=== PATIENT | male | born 1950 | race Caucasian/White ===

== ENCOUNTER → 2018-08-07 | Outpatient (CLI) | payer MEDICARE, OTHER, SELFPAY ==
[2018-08-07 14:51] LABS: Hematocrit 49.6 % (40-54); Hemoglobin 16.9 g/dl (13.0-16.5); Mean Corp Hgb Conc 34.1 g/gl (32-36); Mean Corpuscular Hgb 31.5 pg (27.0-32.0); Mean Corpuscular Volume 92.5 fL (80-94); Mean Platelet Vol. 10.9 fl (6.2-12.0); Platelet Count 213 K/mm3 (150-450); RBC Distribution Width CV 14.6 % (11.6-14.6); RBC Distribution Width SD 49.4 fl (35.1-43.9); Red Blood Count 5.36 M/mm3 (4.6-6.2); White Blood Count 9.9 K/mm3 (4.4-11.0)
[2018-08-07 14:56] LABS: Scan Indicated on CBC? Y/N NO
[2018-08-07 15:32] LABS: Anion Gap 5 (5-15); BUN 18 mg/dL (7-18); BUN/Creat Ratio 13.5 RATIO (10-20); Calcium,Total 9.2 mg/dL (8.5-10.1); Chloride 107 mmol/L (98-107); Cholesterol 200 mg/dL (200); Creatinine, Serum 1.33 mg/dL (0.70-1.30); EST Glomerular Filtration Rate 57 mL/min (>60); Est Glom Filt Rate - Afr Amer 69 mL/min (>60); Glucose 83 mg/dL (74-106); High Density Lipoprotein 48 mg/dL; PSA,Total - Annual Screen 0.69 ng/mL (0.00-4.00); Potassium 4.3 mmol/L (3.5-5.1); Sodium Level 140 mmol/L (136-145); Triglycerides 78 mg/dL; Very Low Density Lipoprotein 16 mg/dL (5-40)
== END | disposition home or self-care (01) ==
DX: I25.110 Atherosclerotic heart disease of native coronary artery with unstable angina pectoris (principal); Z12.5 Encounter for screening for malignant neoplasm of prostate
CPT/HCPCS: 36415; 80048; 80061; 84153; 85027; G0103

== ENCOUNTER → 2018-08-25 08:45 | Outpatient (CLI) | payer MEDICARE, OTHER, SELFPAY ==
--- NOTE | 2018-08-25 08:49 | ECHOD_ITS ---
Reason For Study: CARDIOMYOPATHY Procedure This was a 2D Doppler, Color Flow transthoracic echocardiogram. The study was technically difficult. Exam performed in department. Left Ventricle Normal LV size. Left ventricular systolic function is normal. The estimated ejection fraction is 60 %. No evidence for diastolic dysfunction. No regional wall motion abnormalities noted. Right Ventricle Normal RV size. Normal systolic function. Atria The left atrium is mildly enlarged. Normal right atrium. No doppler evidence for ASD. Mitral Valve There is no mitral annular calcification. Anterior leaflet diffuse mitral valve thickening. Mild (1+) mitral valve insufficiency. Tricuspid Valve Normal tricuspid valve. Trivial tricuspid valve insufficiency. Right ventricular systolic pressure estimated to be 27 mmHg. Aortic Valve Trisinus/trileaflet aortic valve. Normal aortic valve. Pulmonic Valve The pulmonic valve is not well visualized. Great Vessels Normal sized aortic root. Pericardium/Pleural No pericardial effusion. MMode/2D Measurements & Calculations LVIDd: 5.0 cm IVSd: 1.1 cm Ao root diam: 3.2 cm LVIDs: 3.5 cm LVPWd: 1.2 cm RVDd: 3.5 cm FS: 29.5 % LAV(MOD-bp): 67.1 ml LA A4 area: 19.3 cm2 LA dimension(2D): 4.5 cm LAV(MOD-bp) Indexed: 32.2 ml/m2 LAV(MOD-sp2): 69.8 ml LAV(MOD-sp4): 58.3 ml RA A4 area: 18.4 cm2 Time Measurements MV dec time: 0.21 sec Doppler Measurements & Calculations MV E max alfred: 65.0 cm/sec Lat Peak E' Alfred: 13.1 cm/sec Med Peak E' Alfred: 9.2 cm/sec MV A max alfred: 44.4 cm/sec E/E' lat: 5.0 E/E' med: 7.1 MV E/A: 1.5 Ao V2 max: 109.9 cm/sec LV V1 max: 94.9 cm/sec PA V2 max: 96.1 cm/sec Ao max P.5 mmHg LV V1 max P.6 mmHg TR max alfred: 244.9 cm/sec TR max P.0 mmHg Interpretation Summary The study was technically difficult. Left ventricular systolic function is normal. The estimated ejection fraction is 60 %. The left atrium is mildly enlarged. Anterior leaflet diffuse mitral valve thickening. Mild (1+) mitral valve insufficiency. Trivial tricuspid valve insufficiency. Right ventricular systolic pressure estimated to be 27 mmHg. No evidence for diastolic dysfunction. Ordering Physician: JEET MASSEY Referring Physician: JEET MASSEY Performed By: Tigist Tan, ELIUD, RVT
--- NOTE | 2018-08-25 08:49 | ART_ITS ---
Reason For Study: claudication Left Segmental Pressures Left brachial= 145mmHg. Left posterior tibial artery = 124mmHg. Left dorsalis pedis artery = 126mmHg. The left dorsalis pedis waveforms are biphasic. The left posterior tibial artery waveforms are biphasic. Right Segmental Pressures Right brachial= 155mmHg. Right posterior tibial artery = 147mmHg. Right dorsalis pedis artery = 182mmHg. The right dorsalis pedis waveforms are triphasic. The right posterior tibial artery waveforms are triphasic. Indices The right ankle brachial index by the dorsalis pedis is 1.17. The right ankle brachial index by the posterior tibial artery is .95. The left ankle brachial index by the dorsalis pedis is .81. The left ankle brachial index by the posterior tibial artery is .80. Interpretation Summary Triphasic Doppler waveforms are noted at ankle level on the right. Biphasic Doppler waveforms are noted at ankle level on the left. Pulse-volume recording waveform amplitudes are diminished at ankle and digital level on the left. The resting right ankle-brachial index is normal. The resting left ankle-brachial index is mildly to moderately diminished. Arterial flow in the right lower extremity appears normal. 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 Ordering Physician: JEET MASSEY Performed By: ANTON TERRY T
== END ==
DX: I70.213 Atherosclerosis of native arteries of extremities with intermittent claudication, bilateral legs (principal); I42.0 Dilated cardiomyopathy
CPT/HCPCS: 93306; 93922

== ENCOUNTER → 2018-10-01 | Outpatient (CLI) | payer MEDICARE, OTHER, SELFPAY ==
--- NOTE | 2018-10-01 13:43 | ART_ITS ---
Reason For Study: PVD Procedure A bilateral lower extremity continuous wave Doppler with analog waveform analysis,segmental pressures,and ankle brachial indexes with exercise. Left Segmental Pressures Left brachial= 117mmHg. Left thigh = 141mmHg. Left calf = 103mmHg. Left posterior tibial artery = 75mmHg. Left dorsalis pedis artery = 83mmHg. Left digit = 47 mmHg. The left dorsalis pedis waveforms are biphasic. The left posterior tibial artery waveforms are biphasic. Right Segmental Pressures Right brachial= 114mmHg. Right posterior tibial artery = 112mmHg. Right dorsalis pedis artery = 145mmHg. Right digit = 83 mmHg. The right dorsalis pedis waveforms are triphasic. The right posterior tibial artery waveforms are triphasic. Indices The right ankle brachial index by the dorsalis pedis is 1.24. The right ankle brachial index by the posterior tibial artery is 0.96. The right digital-brachial index is 0.71. The right post exercise ankle brachial index is 0.98. The left ankle brachial index by the dorsalis pedis is 0.71. The left ankle brachial index by the posterior tibial artery is 0.64. The left digital-brachial index is 0.40. The left post exercise ankle brachial index is 0.27. Interpretation Summary Triphasic Doppler waveforms are noted at ankle level on the right. Biphasic Doppler waveforms are noted at ankle level on the left. Pulse-volume recording waveform amplitudes are diminished at calf, ankle, and digital levels on the left. The resting right ankle-brachial index is normal. The resting left ankle-brachial index is moderately diminished. The right digital-brachial index is low-normal. The left digital-brachial index is moderately diminished. Following 5 minutes of ambulation on a treadmill at 2 mph and a 5%grade, ankle pressures augment on the right (normal response), and diminish on the left. There is no evidence of significant arterial occlusive disease in the right lower extremity. 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 Ordering Physician: Jimmy Orosco Performed By: Charlotte Marquis, ELIUD, RVT
== END | disposition home or self-care (01) ==
LOC: CVS 13:41
PROVIDERS: Referring Provider Surgery Vascular Surgery; Visit Provider Surgery Vascular Surgery
DX: I73.9 Peripheral vascular disease, unspecified (principal)
CPT/HCPCS: 93924

== ENCOUNTER 2020-08-24 20:17 | Emergency (ER) | payer MEDICARE, OTHER, SELFPAY ==
[2020-08-24 20:18] VITALS: BP 159/74; PULSE 96; RESP 20; TEMP 38.4; O2SAT 94; BMI 27.2
[2020-08-24 20:48] LABS: Absolute Lymphocyte Count 1.08 X10^3/uL (0.83-4.51); Absolute Neutrophil Count 7.9 X10^3/uL (2.0-7.7); Basophil# 0.02 X10^3/uL; Basophil% 0.2 % (0-1); Eosinophil# 0.01 X10^3/uL; Eosinophils% 0.1 % (0-5); Hematocrit 45.3 % (40-54); Hemoglobin 14.9 g/dL (13.0-16.5); Lymphocyte # 1.08 X10^3/ul (0.83-4.51); Lymphocyte % 10.8 % (19-41); Mean Corp Hgb Conc 32.9 g/dL (32-36); Mean Corpuscular Hgb 30.2 pg (27.0-32.0); Mean Corpuscular Volume 91.7 fL (80-94); Mean Platelet Vol. 10.7 fl (6.2-12.0); Monocyte# 1.05 X10^3/uL; Monocyte% 10.5 % (0-10); NRBC Flagged by Analyzer 0 % (0-5); Neutrophil # 7.85 X10^3/uL (2.7-7.7); Neutrophil % 78.1 % (47-70); Platelet Count 147 K/mm3 (150-450); RBC Distribution Width CV 14.3 % (11.6-14.6); RBC Distribution Width SD 48.2 fl (35.1-43.9); Red Blood Count 4.94 M/mm3 (4.6-6.2)
--- NOTE | 2020-08-24 20:54 | EX.ED.VIS.UR ---
HPI HPI - URI History of Present Illness Chief Complaint: Shortness of Breath Informant: patient Onset/Context/Timing Onset: Weeks Context: Sudden Onset Timing: Continuous Quality: Aches, decreased appetite, congestion, cough, shortness of breath and shaki Location: Respiratory and generalized Current Severity: Mild Maximum Severity: Severe Worsened by: - (Nothing) Relieved by: - (Nothing) Associated Symptoms Associated Symptoms: Nasal Congestion, Headache, Sinus Pressure, Nausea, Vomiting, Diarrhea, Shortness of Breath, Chest Pain, Nonproductive cough, Hemoptysis and Productive Cough Narrative Narrative: Patient is a 62-year-old male who is a smoker 1 pack/day for many years who presents with viral type symptoms. Onset approximately 1 week ago. He was exposed to granddaughter who tested positive for Covid. He denies headache, photophobia or neck pain. He denies rash. He denies loss of taste or smell. He denies abdominal pain. Does report nausea with decreased appetite. Denies diarrhea. Nuys black or maroon-colored stool. He denies dysuria, frequency, urgency or hematuria. Prior similar symptoms: No Recent Illness/Hospitalization: No ROS ROS ED Constitutional Constitutional ED: Reports chills, fever(s), subjective and sweats; Denies weight loss Eyes Eyes: Denies blurry vision, change in vision or diplopia ENT ENT ED: Reports rhinorrhea; Denies ear pain or sore throat Cardiovascular Cardiovascular: Denies chest pain, orthopnea, palpitations or paroxysmal nocturnal dyspnea Respiratory/Chest Respiratory/Chest: Reports cough and dyspnea; Denies dyspnea on exertion, orthopnea, paroxysmal nocturnal dyspnea or sputum Gastrointestinal Gastrointestinal: Reports nausea; Denies abdominal pain, constipation, diarrhea, melena or vomiting Genitourinary Genitourinary ED: Denies dysuria, hematuria or urinary frequency Musculoskeletal Musculoskeletal: Reports arthralgias and myalgias Integumentary Denies rash Neurologic Neurologic: Reports weakness; Denies headache(s) or paresthesias Endocrine Endocrinology: Denies polydipsia, polyphagia or polyuria Hematologic/Lymphatic Hematologic/Lymphatic: Denies easy bleeding or easy bruising [facility] Medical History (Updated 08/24/20 @ 22:[address] Dylan Manriquez MD) Hypertension Home Medications levofloxacin 500 mg PO DAILY #6 tab 08/24/20 [Rx Last Taken Unknown] Allergy/AdvReac Type Severity Reaction Status Date / Time No Known Allergies Allergy Verified 08/24/20 20:20 Surgical History (Updated 08/24/20 @ 21:27 by Mg Fierro) History of coronary artery stent placement Social History (Updated 08/24/20 @ 20:[address] Dylan Manriquez MD) household members: none history of recent travel: No current gender identity: male Smoking Status: Current every day smoker alcohol intake: current alcohol intake frequency: holidays/special occasions only substance use type: does not use EXAM Physical Exam Const Vital Signs: 08/24/20 20:18 08/24/20 21:20 08/24/20 21:26 Temperature 101.2 F H 101.1 F H Temperature Source Temporal Oral Pulse Rate 96 89 89 Respiratory Rate 20 H 25 H 20 H Respiratory Effort Respiratory Depth Respiratory Pattern Blood Pressure 159/74 H 131/72 H 134/74 H Blood Pressure Mean 102 91 94 Pulse Ox 94 94 94 Oxygen Delivery Method Room Air Room Air Room Air 08/24/20 21:28 Temperature Temperature Source Pulse Rate Respiratory Rate Respiratory Effort Short of Breath Respiratory Depth Normal Respiratory Pattern Normal Blood Pressure Blood Pressure Mean Pulse Ox Oxygen Delivery Method Positive well nourished and well developed General Appearance ED: well developed and other Patient does not appear well. ; Negative for cyanotic or pallor HEENT Reports TM's clear and dry mucous membranes normocephalic and atraumatic External Ear: external ears normal, mastoids normal and no preauricular adenopathy External Auditory Canal: EAC's normal Tympanic Membrane ED: Yes TM's clear Mouth ED: Yes dry mucous membranes Mouth: dry mucous membranes Eyes PERRL and EOMs intact bilaterally General Eye ED: Negative for pale conjunctiva or scleral icterus Neck no lymphadenopathy, supple, no meningeal signs and no JVD Resp normal respiratory effort and clear to auscultation bilaterally Cardio S1 normal heart sound, S2 normal heart sound and no murmurs Rate: regular rate Rhythm: regular rhythm Bruits: Negative for carotid bruit or abdominal aortic bruit GI non-tender, non-distended and no masses Auscultation: normoactive bowel sounds Palpation: soft Back/Spine no CVA tenderness and normal ROM Extremity normal to inspection and full ROM General Extremety ED: Negative for cyanosis or tenderness General Extremity: Negative for cyanosis Neuro oriented x3, CN's II-XII intact bilaterally and no sensory deficits noted Sensorium / Orientation: alert, oriented to person, oriented to place and oriented to time Motor Exam: strength 5/5 throughout Psych mental status grossly normal Skin General Skin Exam: Negative for jaundice or pallor Lesions: no lesions Rashes: no rashes MDM MDM MDM Narrative Medical decision making narrative: Patient presents with fever and respiratory symptoms. This may represent pneumonia or Covid. Since there was exposure to Covid will place in Covid precautions and appropriate tests have been ordered. Since Covid test is negative and there is concern for pneumonia we will treat with Levaquin for commune acquired pneumonia. Since patient is not tachypneic, not tachycardic and not hypoxic with a normal white count lactate he is a candidate for outpatient therapy. Lab Data Attestation: I reviewed the patient's lab results. Lab results narrative: I returned unremarkable. Labs: Laboratory Results - last 24 hr 08/24/20 08/24/20 08/24/20 20:35 20:35 20:35 WBC 10.0 RBC 4.94 Hgb 14.9 Hct 45.3 MCV 91.7 MCH 30.2 MCHC 32.9 RDW Std Deviation 48.2 H RDW Coeff of Becky 14.3 Plt Count 147 L MPV 10.7 Immature Gran % (Auto) 0.300 Neut % (Auto) 78.1 H Lymph % (Auto) 10.8 L [place] % (Auto) 10.5 H Eos % (Auto) 0.1 Baso % (Auto) 0.2 Absolute Neuts (auto) 7.9 H Absolute Lymphs (auto) 1.08 Nucleated RBC % 0 Sodium 133 L Potassium 3.7 Chloride 101 Carbon Dioxide 28.0 Anion Gap 4 L BUN 16 Creatinine 1.13 Estim Creat Clear Calc 64.60 Est GFR (MDRD) Af Amer 83 Est GFR (MDRD) Non-Af 69 BUN/Creatinine Ratio 14.2 Glucose 111 H Lactic Acid 1.4 Calcium 8.6 Radiography Diagnostic Testing: Radiology Impression Chest X-Ray 08/24/20 21:05 IMPRESSION: Bilateral focal areas of airspace disease possibly representing pneumonia. at 2139 Reported and signed by: Aiden Chong MD Electronically Signed: Aiden Chong MD at 21:38 EDT Tel , Service support , Single view chest x-ray reveals normal cardiac silhouette and size. Mediastinum unremarkable. There is slight increased interstitial markings in the right and left lower lung. This may be due to poor inspiratory volume or early Covid pneumonia. Awaiting Covid test. The x-ray was interpreted by me at 2133. Treatment and Re-Evaluation Comments:: If Covid test is positive we will treat symptomatically. If Covid test is negative we will treat for community-acquired pneumonia. Lactate is normal at 1.4. Discharge Plan Triage Chief Complaint: Shortness of Breath ED Provider: Dylan Manriquez Dx/Rx/DC Orders Clinical Impression: Community acquired pneumonia Prescriptions: New levofloxacin [levofloxacin] 500 MG tablet 500 mg PO DAILY Qty: 6 RF: 0 Primary Care Provider: [facility] Doctor,Out of Referrals: [facility] Doctor,Out of [Primary Care Provider] - 3-5 Days if not improving Disposition Disposition: Home, self care
[2020-08-24 21:05] LABS: Anion Gap 4 (5-15); BUN 16 mg/dL (7-18); BUN/Creat Ratio 14.2 RATIO (10-20); Calcium,Total 8.6 mg/dL (8.5-10.1); Chloride 101 mmol/L (98-107); Creatinine, Serum 1.13 mg/dL (0.70-1.30); EST Glomerular Filtration Rate 69 mL/min (>60); Est Glom Filt Rate - Afr Amer 83 mL/min (>60); Glucose 111 mg/dL (74-106); Potassium 3.7 mmol/L (3.5-5.1); Sodium Level 133 mmol/L (136-145)
--- NOTE | 2020-08-24 21:05 | RAD_ITS ---
HISTORY: cough EXAM: XR Chest 1 View: COMPARISON: Left shoulder x-rays from September 30, 2011 FINDINGS: # of images incl. paperwork: 1 Airspace disease within the left lower lobe and the right upper lobe. Calcific plaque within the aortic arch. Heart is not enlarged. No acute osseous pathology perceived. Pulmonary vascularity is distinct. No effusions. RAD/Chest 1 View (Portable) IMPRESSION: Bilateral focal areas of airspace disease possibly representing pneumonia. at 2139 Reported and signed by: Aiden Chong MD Electronically Signed: Aiden Chong MD at 21:38 EDT Tel , Service support ,
[2020-08-24 21:20] VITALS: BP 131/72; PULSE 89; RESP 25; TEMP 38.4; O2SAT 94
[2020-08-24 21:26] VITALS: BP 134/74; PULSE 89; RESP 20; O2SAT 94
[2020-08-24 21:43] LABS: Lactic Acid 1.4 mmol/L (0.4-1.9)
[2020-08-24 22:37] VITALS: BP 109/53; PULSE 84; RESP 30; TEMP 1011; TEMP 543.8; O2SAT 94
[2020-08-24] MEDS: levoFLOXacin 750 MG Tablet PO (22:39)
== END 2020-08-24 22:45 | disposition home or self-care (01) ==
LOC: ED 22:28
PROVIDERS: Emergency Provider Emergency Medicine
DX: J18.9 Pneumonia, unspecified organism (principal); F17.210 Nicotine dependence, cigarettes, uncomplicated; I10 Essential (primary) hypertension
CPT/HCPCS: 71045; 80048; 83605; 85025; 87040; 87426; 99284; A4216

== ENCOUNTER → 2020-09-25 09:35 | Outpatient (CLI) | payer MEDICARE, OTHER, SELFPAY ==
[2020-09-25 10:12] LABS: Hematocrit 45.5 % (40-54); Hemoglobin 14.6 g/dL (13.0-16.5); Mean Corp Hgb Conc 32.1 g/dL (32-36); Mean Corpuscular Hgb 30.2 pg (27.0-32.0); Mean Platelet Vol. 10.5 fl (6.2-12.0); Platelet Count 204 K/mm3 (150-450); RBC Distribution Width CV 14.8 % (11.6-14.6); RBC Distribution Width SD 51.8 fl (35.1-43.9); Red Blood Count 4.84 M/mm3 (4.6-6.2); White Blood Count 9.8 K/mm3 (4.4-11.0)
[2020-09-25 10:39] LABS: AST(SGOT) 21 U/L (15-37); Alanine Aminotransfer ALT/SGPT 28 U/L (16-61); Albumin, Serum 3.2 g/dL (3.2-5.0); Alkaline Phosphatase 137 U/L (45-117); Anion Gap 7 (5-15); BUN 16 mg/dL (7-18); BUN/Creat Ratio 14.3 RATIO (10-20); Bilirubin, Direct 0.13 mg/dL (0.00-0.30); Calcium,Total 8.8 mg/dL (8.5-10.1); Chloride 110 mmol/L (98-107); Cholesterol 110 mg/dL (200); Creatinine, Serum 1.12 mg/dL (0.70-1.30); EST Glomerular Filtration Rate 69 mL/min (>60); Est Glom Filt Rate - Afr Amer 84 mL/min (>60); Globulin 3.5 g/dL (2.2-4.2); Glucose 91 mg/dL (74-106); High Density Lipoprotein 47 mg/dL; PSA,Total - Annual Screen 0.61 ng/mL (0.00-4.00); Potassium 3.8 mmol/L (3.5-5.1); Protein, Total 6.7 g/dL (6.4-8.2); Sodium Level 141 mmol/L (136-145); T4 Free Direct 0.95 ng/dL (0.76-1.46); Triglycerides 44 mg/dL; Very Low Density Lipoprotein 9 mg/dL (5-40)
== END ==
DX: E78.5 Hyperlipidemia, unspecified (principal); E03.9 Hypothyroidism, unspecified; Z12.5 Encounter for screening for malignant neoplasm of prostate
CPT/HCPCS: 36415; 80048; 80061; 80076; 84153; 84439; 85027; G0103

== ENCOUNTER → 2021-10-29 | Outpatient (CLI) | payer MEDICARE, OTHER, SELFPAY ==
[2021-10-29 09:41] LABS: Hematocrit 47.5 % (40-54); Hemoglobin 15.5 g/dL (13.0-16.5); Mean Corp Hgb Conc 32.6 g/dL (32-36); Mean Corpuscular Hgb 30.9 pg (27.0-32.0); Mean Corpuscular Volume 94.8 fL (80-94); Mean Platelet Vol. 11.2 fl (6.2-12.0); Platelet Count 196 K/mm3 (150-450); RBC Distribution Width CV 14.6 % (11.6-14.6); RBC Distribution Width SD 50.7 fl (35.1-43.9); Red Blood Count 5.01 M/mm3 (4.6-6.2); White Blood Count 10.2 K/mm3 (4.4-11.0)
[2021-10-29 10:11] LABS: AST(SGOT) 19 U/L (15-37); Alanine Aminotransfer ALT/SGPT 27 U/L (16-61); Albumin, Serum 3.6 g/dL (3.2-5.0); Alkaline Phosphatase 118 U/L (45-117); Anion Gap 7 (5-15); BUN 12 mg/dL (7-18); BUN/Creat Ratio 11.1 RATIO (10-20); Bilirubin, Direct 0.13 mg/dL (0.00-0.30); Calcium,Total 9.1 mg/dL (8.5-10.1); Chloride 104 mmol/L (98-107); Cholesterol 99 mg/dL (200); Creatinine, Serum 1.08 mg/dL (0.70-1.30); EST Glomerular Filtration Rate 72 mL/min (>60); Est Glom Filt Rate - Afr Amer 87 mL/min (>60); Globulin 3.3 g/dL (2.2-4.2); Glucose 100 mg/dL (74-106); High Density Lipoprotein 46 mg/dL; Potassium 3.7 mmol/L (3.5-5.1); Protein, Total 6.9 g/dL (6.4-8.2); Sodium Level 139 mmol/L (136-145); Triglycerides 55 mg/dL; Very Low Density Lipoprotein 11 mg/dL (5-40)
== END | disposition home or self-care (01) ==
PROVIDERS: Referring Provider Internal Medicine Cardiovascular Disease; Visit Provider Internal Medicine Cardiovascular Disease
DX: E78.5 Hyperlipidemia, unspecified (principal); M12.80 Other specific arthropathies, not elsewhere classified, unspecified site
CPT/HCPCS: 36415; 80048; 80061; 80076; 85027

== ENCOUNTER → 2022-09-23 | Outpatient (CLI) | payer MEDICARE, OTHER, SELFPAY ==
--- NOTE | 2022-09-23 11:24 | RAD_ITS ---
EXAM: XR CHEST, 2 VIEWS CLINICAL INDICATION: Psoriasis vulgaris TECHNIQUE: Frontal and lateral views of the chest. COMPARISON: 08/24/2020. FINDINGS: LUNGS AND PLEURAL SPACES: Unremarkable. No consolidation or edema. No pneumothorax. No effusion. HEART: Unremarkable. Cardiac silhouette not enlarged. MEDIASTINUM: Central airways and mediastinal contour are unremarkable. BONES/JOINTS: Unremarkable. SOFT TISSUES: Unremarkable. RAD/Chest PA and Lateral IMPRESSION: No acute cardiopulmonary abnormality. Electronically Signed: Andry Dao MD at 1:01 EDT ,
== END | disposition home or self-care (01) ==
PROVIDERS: Referring Provider Dermatology Pediatric Dermatology; Visit Provider Dermatology Pediatric Dermatology
DX: L40.0 Psoriasis vulgaris (principal)
CPT/HCPCS: 71046

== ENCOUNTER → 2023-01-21 | Outpatient (CLI) | payer MEDICARE, OTHER, SELFPAY ==
[2023-01-21 13:25] LABS: AST(SGOT) 21 U/L (15-37); Alanine Aminotransfer ALT/SGPT 33 U/L (16-61); Albumin, Serum 3.5 g/dL (3.2-5.0); Alkaline Phosphatase 145 U/L (45-117); Anion Gap 5 (5-15); BUN 12 mg/dL (7-18); BUN/Creat Ratio 10.6 RATIO (10-20); Bilirubin, Direct 0.16 mg/dL (0.00-0.30); Calcium,Total 9.3 mg/dL (8.5-10.1); Chloride 107 mmol/L (98-107); Cholesterol 109 mg/dL (200); Creatinine, Serum 1.13 mg/dL (0.70-1.30); EST Glomerular Filtration Rate 68 mL/min (>60); Est Glom Filt Rate - Afr Amer 82 mL/min (>60); Globulin 3.6 g/dL (2.2-4.2); Glucose 97 mg/dL (74-106); High Density Lipoprotein 48 mg/dL; Potassium 4.1 mmol/L (3.5-5.1); Protein, Total 7.1 g/dL (6.4-8.2); Sodium Level 140 mmol/L (136-145); Triglycerides 64 mg/dL; Very Low Density Lipoprotein 13 mg/dL (5-40)
== END | disposition home or self-care (01) ==
LOC: MTLAB 10:54
PROVIDERS: PCP Internal Medicine Cardiovascular Disease; Referring Provider Internal Medicine Cardiovascular Disease; Visit Provider Internal Medicine Cardiovascular Disease
DX: I25.10 Atherosclerotic heart disease of native coronary artery without angina pectoris (principal); E78.5 Hyperlipidemia, unspecified
CPT/HCPCS: 36415; 80048; 80061; 80076

== ENCOUNTER → 2023-01-28 | Outpatient (CLI) | payer MEDICARE, OTHER, SELFPAY ==
[2023-01-30 12:09] LABS: QNTFERON TB Mitogen Value > 10.00 IU/mL (.); QNTFERON TB Nil Value 0.04 IU/mL (.); QNTFERON TB1+ Ag Value 0.04 IU/mL (.); QNTFERON TB2+ Ag Value 0.05 IU/mL (.); QNTIFERON TB Positive Criteria Negative (Negative)
== END | disposition home or self-care (01) ==
LOC: MTLAB 08:56
PROVIDERS: PCP Internal Medicine Cardiovascular Disease
DX: Z79.899 Other long term (current) drug therapy (principal)
CPT/HCPCS: 36415; 86480

== ENCOUNTER → 2023-02-20 | Outpatient (CLI) | payer MEDICARE, OTHER, SELFPAY ==
[2023-02-21 14:09] LABS: Anti-Cardiolipin Ab, IgA, Qn < 9 APL U/mL (0-11); Anti-Cardiolipin Ab, IgG, Qn < 9 GPL U/mL (0-14); Anti-Cardiolipin Ab, IgM, Qn 10 MPL U/mL (0-12); Thyroid Peroxidase AB 13 IU/mL (0-34)
[2023-02-22 13:07] LABS: Anti-Nuclear Antibody Test Negative (.); Anti-dsDNA Ab <1 IU/mL (0-9)
== END | disposition home or self-care (01) ==
LOC: MTLAB 10:41
PROVIDERS: PCP Internal Medicine Cardiovascular Disease; Referring Provider Dermatology Pediatric Dermatology; Visit Provider Dermatology Pediatric Dermatology
DX: L40.0 Psoriasis vulgaris (principal)
CPT/HCPCS: 36415; 86038; 86147; 86225; 86376

== ENCOUNTER → 2023-10-20 | Outpatient (CLI) | payer MEDICARE, OTHER, SELFPAY ==
[2023-10-20 12:57] LABS: AST(SGOT) 19 U/L (15-37); Alanine Aminotransfer ALT/SGPT 26 U/L (16-61); Albumin, Serum 3.4 g/dL (3.2-5.0); Alkaline Phosphatase 113 U/L (45-117); Anion Gap 6 (5-15); BUN 15 mg/dL (7-18); BUN/Creat Ratio 12.6 RATIO (10-20); Bilirubin, Direct 0.15 mg/dL (0.00-0.30); Calcium,Total 9.1 mg/dL (8.5-10.1); Chloride 109 mmol/L (98-107); Cholesterol 100 mg/dL (200); Creatinine, Serum 1.19 mg/dL (0.70-1.30); EST Glomerular Filtration Rate 64 mL/min (>60); Est Glom Filt Rate - Afr Amer 77 mL/min (>60); Globulin 3.4 g/dL (2.2-4.2); Glucose 104 mg/dL (74-106); High Density Lipoprotein 43 mg/dL; PSA,Total - Annual Screen 0.68 ng/mL (0.00-4.00); Protein, Total 6.8 g/dL (6.4-8.2); Sodium Level 138 mmol/L (136-145); Triglycerides 63 mg/dL; Very Low Density Lipoprotein 13 mg/dL (5-40)
== END | disposition home or self-care (01) ==
PROVIDERS: PCP Internal Medicine Cardiovascular Disease; Referring Provider Internal Medicine Cardiovascular Disease; Visit Provider Internal Medicine Cardiovascular Disease
DX: Z12.5 Encounter for screening for malignant neoplasm of prostate (principal); I25.10 Atherosclerotic heart disease of native coronary artery without angina pectoris; E78.5 Hyperlipidemia, unspecified; N40.0 Benign prostatic hyperplasia without lower urinary tract symptoms
CPT/HCPCS: 36415; 80048; 80061; 80076; 84153; G0103

== ENCOUNTER → 2024-10-01 | Outpatient (CLI) | payer MEDICARE, OTHER, SELFPAY ==
[2024-10-05 04:07] LABS: QNTFERON TB Mitogen Value > 10.00 IU/mL (.); QNTFERON TB Nil Value 0.02 IU/mL (.); QNTFERON TB1+ Ag Value 0.02 IU/mL (.); QNTFERON TB2+ Ag Value 0.02 IU/mL (.); QNTIFERON TB Positive Criteria Negative (Negative)
== END | disposition home or self-care (01) ==
LOC: MTLAB 11:49
PROVIDERS: PCP Internal Medicine Cardiovascular Disease; Referring Provider Dermatology Pediatric Dermatology; Visit Provider Dermatology Pediatric Dermatology
DX: L40.0 Psoriasis vulgaris (principal)
CPT/HCPCS: 36415; 86480